=== PATIENT | female | born 1950 | race Caucasian/White ===

== ENCOUNTER 2019-02-19 19:49 | Emergency (ER) | payer MEDICARE, OTHER ==
[~2019-02-19] VITALS: Ht 152.4 cm; Wt 76.0 kg
[2019-02-19 20:07] VITALS: Ht 152.4 cm; Wt 76.0 kg
[2019-02-19] MEDS ORDERED: ONDANSETRON (ODT) 4 MG TAB ODT STA (22:31)
[2019-02-19] MEDS ORDERED: KETOROLAC 30 MG INJ IM STA (22:31)
[2019-02-19] MEDS ORDERED: CYCL10TA7 PO (22:59)
[2019-02-19] MEDS ORDERED: TRAM50TA2 PO (22:59)
[2019-02-19] MEDS ORDERED: HYDROCODONE/APAP (5/325) TAB PO ONE (23:00)
--- NOTE | 2019-02-19 23:04 | ERD ---
ER Documentation Chief Complaint Chief Complaint C/O RT LOWER BACK PAIN RADIATING TO RT LEG X4 DAYS, HX SCIATICA HPI 68-year-old female presents with low back pain rating to right leg worsening over the last 4 days. She has a history of known sciatica. She is had MRIs and received a steroid injection by her PCP without relief. She takes diclofenac at home. Denies any bowel or bladder incontinence, weakness. She has pain rating to the right lower extremity 8 out of 10, sharp. Worse with movement decreased with rest. ROS All systems reviewed and are negative except as per history of present illness. Medications Home Meds Active Scripts Cyclobenzaprine Hcl* (Cyclobenzaprine Hcl*) 10 Mg Tablet, 10 MG PO TID, #15 TAB Prov:AISHA PARKER MD 02/19/19 Tramadol HCl (Tramadol HCl) 50 Mg Tablet, 50 MG PO Q4 PRN for PAIN, #20 TAB Prov:AISHA PARKER MD 02/19/19 Allergies Allergies: Coded Allergies: No Known Allergy (Unverified , 02/19/19) PMhx/Soc History of Surgery: No Anesthesia Reaction: No Hx Neurological Disorder: No Hx Respiratory Disorders: No Hx Cardiac Disorders: No Hx Psychiatric Problems: No Hx Miscellaneous Medical Probl: No Hx Alcohol Use: No Hx Substance Use: No Hx Tobacco Use: No Smoking Status: Never smoker Physical Exam Vitals Vital Signs Date Temp Pulse Resp B/P (MAP) Pulse Ox O2 O2 Flow FiO2 Time Delivery Rate 02/19/19 99.7 107 22 181/73 97 20:07 (109) Physical Exam Const: No acute distress Head: Atraumatic Eyes: Normal Conjunctiva ENT: Normal External Ears, Nose and Mouth. Neck: Full range of motion. No meningismus. Resp: Clear to auscultation bilaterally Cardio: Regular rate and rhythm, no murmurs Abd: Soft, non tender, non distended. Normal bowel sounds Skin: No petechiae or rashes Back: No midline or flank tenderness. Tenderness primarily right L4-5 area with spasm. Positive straight leg raise. Ext: No cyanosis, or edema Neur: Awake and alert with no deficits appreciated. Psych: Normal Mood and Affect Results 24 hrs Current Medications Medications Dose Sig/Chelsey Start Time Status Last (Trade) Ordered Route PRN Stop Time Admin Dose Reason Admin Ketorolac 30 mg ONCE STAT 02/19/19 DC 02/19/19 Tromethamine IM 22:31 02/19/19 22:38 (Toradol) 22:32 1 tab ONCE ONCE 02/19/19 02/19/19 Acetaminophen PO 23:00 02/19/19 22:38 / 23:01 Hydrocodone Bitart ([place] (5/325)) Ondansetron 8 mg ONCE STAT 02/19/19 DC 02/19/19 HCl (Zofran ODT 22:31 02/19/19 22:37 Odt) 22:32 Procedures/MDM Patient has signs and symptoms of right-sided sciatica without signs to suggest epidural abscess, cauda equina syndrome, fracture, dislocation. She does have some mild tachycardia and temp of 99. 7 but no other signs or symptoms to suggest bacterial infection related to her signs of sciatica.. She will be treated with Toradol, [place] and will be treated with tramadol, Flexeril, instructions for back exercises and primary care follow-up at home as well as return precautions for fevers, weakness, new or worsening symptoms. The patient was stable with no new complaints during the ER course. Clinically, there is no current evidence to suggest meningitis, sepsis, acute abdomen, pneumonia, stroke, acute coronary syndrome, pulmonary embolism, aortic dissection or any other emergent condition appearing to require further evaluation or hospitalization. Patient counseled regarding my diagnostic impression and care plan. Prior to discharge all questions answered. Pt agrees with treatment plan and understands strict return precautions. Pt is instructed to follow up with primary care provider within 24-48 hours. Precautionary instructions provided including instructions to return to the ER if not improving or for any worsening or changing symptoms or concerns. The patient's blood pressure was elevated (>120/80) but appears stable without evidence of hypertension emergency or urgency. The patient was counseled about the risks of hypertension and urged to pursue outpatient monitoring and therapy within a week with their primary care physician. I discussed the findings with the patient. I advised the patient to follow-up with the primary physician in about 1-2 days, sooner if needed and return if any concern. Disclaimer: Inadvertent spelling and grammatical errors are likely due to EHR/d ictation software use and do not reflect on the overall quality of patient care. Also, please note that the electronic time recorded on this note does not necessarily reflect the actual time of the patient encounter. Departure Diagnosis: Primary Impression: Back pain Back pain location: low back pain Chronicity: acute Back pain laterality: left Sciatica presence: with sciatica Sciatica laterality: sciatica of left side Qualified Codes: M54.42 - Lumbago with sciatica, left side Additional Impression: Hypertension Condition: Stable Patient Instructions: Back Exercises, Lumbar, Back Pain W/ Sciatica Referrals: NO PRIMARY,CARE PHYSICIAN (PCP) Additional Instructions: Cheque otro vez con hart doctor primario en el proximo pastor or regresa para mas o nueva simptomas. AISHA PARKER MD Feb 19, 2019 23:04
[2019-02-19 23:08] VITALS: BP 164/80; PULSE 78; RESP 18
== END 2019-02-19 23:09 | disposition home or self-care (01) ==
LOC: FTE 19:49
DX: M54.42 Lumbago with sciatica, left side (principal); I10 Essential (primary) hypertension
CPT/HCPCS: 96372; 99284; J1885